=== PATIENT | male | born 2005 | race Two or more races ===

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

== ENCOUNTER 2024-07-15 18:05 | Inpatient (IN) | payer OTHER ==
[~2024-07-15] VITALS: Ht 165.1 cm; Wt 58.9 kg
[~2024-07-15 18:05] MED LIST: ZYRTEC10 M3 PO
--- NOTE | 2024-07-15 18:22 | NUR ---
SE RECIBE MASCULINO ALERTA Y ORIENTADO X3 CUAL REFIERE DOLOR DE GARGANTA DESDE EL SABADO. SE PANTERA S/V Y SE UBICA.
[2024-07-15 20:38] LABS: HEMATOCRIT 47.5 % (39.0-48.0); HEMOGLOBIN 15.4 g/dL (13-16.00); MEAN CELL VOLUME 82.4 fL (80.0-100.00); MEAN CORPUSCULAR HEMOGLOBIN 26.8 pg (27.00-32.0); MEAN CORPUSCULAR HGB CONC 32.5 g/dl (32.0-36.0); RED BLOOD COUNT 5.77 M/uL (4.00-6.00); RED CELL DISTRIBUTION WIDTH 14.2 % (11.5-14.5)
[2024-07-15 20:40] LABS: PLATELET COUNT 98 K/uL (150-450)
--- NOTE | 2024-07-15 20:49 | NUR ---
PTE ALERTA Y ORIENTADO X3, SE EDUCA SOBRE TX MEDICO Y EL MISMO REFIERE ACEPTAR. SE CANALIZA Y SE COLECTAN MUESTRAS DE LAB BAJO MEDIDAS ASEPTICAS. PEND XRAY A REALIZAR
[2024-07-15] MEDS ORDERED: DEXTROSE 5 % AND 0.9 % NACL 1,000 ML IV SCH (21:45)
[2024-07-15] MEDS ORDERED: ACETAMINOPHEN 500 MG GEL..CAP PO PRN (22:00)
[2024-07-15 22:50] VITALS: BP 109/57; O2SAT 98
[2024-07-15 22:51] VITALS: BP 109/57
[2024-07-16 00:18] VITALS: BP 109/63; O2SAT 99
[2024-07-16 02:27] VITALS: BP 112/76; O2SAT 98
[2024-07-16 04:00] VITALS: BP 128/96; O2SAT 97
[2024-07-16 06:22] LABS: HEMATOCRIT 43.5 % (39.0-48.0); MEAN CELL VOLUME 79.9 fL (80.0-100.00); MEAN CORPUSCULAR HEMOGLOBIN 27.6 pg (27.00-32.0); MEAN CORPUSCULAR HGB CONC 34.5 g/dl (32.0-36.0); RED BLOOD COUNT 5.45 M/uL (4.00-6.00); RED CELL DISTRIBUTION WIDTH 14.4 % (11.5-14.5)
[2024-07-16 06:24] LABS: PLATELET COUNT 94 K/uL (150-450)
[2024-07-16 06:45] LABS: ALBUMIN 3.9 gm/dL (3.4-5.0); BILIRUBIN TOTAL 0.61 mg/dL (0.3-1.2); CALCIUM 8.8 mg/dL (8.5-10.1); CREATININE SERUM 0.78 mg/dL (0.70-1.30); GFR 126.9; GLOBULINA 2.9 G/DL (2.4-3.5); POTASSIUM 4.26 mEq/L (3.5-5.1); TOTAL PROTEIN 6.8 gm/dL (6.4-8.2)
[2024-07-16 08:25] VITALS: BP 111/74; O2SAT 97
[2024-07-16 16:29] VITALS: BP 116/75; O2SAT 97
[2024-07-17 00:22] VITALS: BP 95/63; O2SAT 97
[2024-07-17 06:53] LABS: ALBUMIN 3.8 gm/dL (3.4-5.0); BILIRUBIN TOTAL 0.42 mg/dL (0.3-1.2); CALCIUM 8.8 mg/dL (8.5-10.1); CREATININE SERUM 0.76 mg/dL (0.70-1.30); GFR 130.76; GLOBULINA 2.8 G/DL (2.4-3.5); POTASSIUM 4.15 mEq/L (3.5-5.1); TOTAL PROTEIN 6.6 gm/dL (6.4-8.2)
[2024-07-17 07:05] LABS: HEMATOCRIT 42.2 % (39.0-48.0); HEMOGLOBIN 13.8 g/dL (13-16.00); MEAN CELL VOLUME 81.9 fL (80.0-100.00); MEAN CORPUSCULAR HEMOGLOBIN 26.7 pg (27.00-32.0); MEAN CORPUSCULAR HGB CONC 32.6 g/dl (32.0-36.0); RED BLOOD COUNT 5.15 M/uL (4.00-6.00); RED CELL DISTRIBUTION WIDTH 14.1 % (11.5-14.5)
[2024-07-17 07:21] LABS: PLATELET COUNT 86 K/uL (150-450)
[2024-07-17 08:10] VITALS: BP 107/70; O2SAT 98
[2024-07-17 11:29] LABS: HEMATOCRIT 43.6 % (39.0-48.0); MEAN CORPUSCULAR HEMOGLOBIN 26.3 pg (27.00-32.0); MEAN CORPUSCULAR HGB CONC 32.1 g/dl (32.0-36.0); RED BLOOD COUNT 5.31 M/uL (4.00-6.00); RED CELL DISTRIBUTION WIDTH 14.2 % (11.5-14.5)
[2024-07-17 11:32] LABS: PLATELET COUNT 86 K/uL (150-450)
[2024-07-17 12:23] LABS: INR 1.15; PARTIAL THROMBOPLASTIN TIME 30.1 SECONDS (22.0-34.0); PROTHROMBIN TIME 12.4 SECONDS (9.0-11.5)
[2024-07-17 12:26] LABS: MANUAL PLATELET COUNT 176
[2024-07-17] MEDS ORDERED: METHYLPREDNISOLONE SOD SUCC 40 MG VIAL IV SCH (13:00)
[2024-07-17 16:00] VITALS: BP 102/67; O2SAT 98
[2024-07-18 00:01] VITALS: BP 126/77; O2SAT 96
[2024-07-18 08:22] VITALS: BP 107/57; O2SAT 97
[2024-07-18] MEDS ORDERED: CETIRIZINE HCL 5 MG/5 ML ML PO SCH (17:00)
[2024-07-18] MEDS ORDERED: FLUTICASONE PROPIONATE 50 MCG SPRAY NASAL SCH (17:00)
[2024-07-18 18:39] VITALS: BP 110/73; O2SAT 98
[2024-07-18 20:53] VITALS: BP 108/69; O2SAT 98
[2024-07-19] VITALS: BP 100/64; O2SAT 97
[2024-07-19 06:12] LABS: HEMATOCRIT 41.8 % (39.0-48.0); HEMOGLOBIN 13.5 g/dL (13-16.00); MEAN CELL VOLUME 82.1 fL (80.0-100.00); MEAN CORPUSCULAR HEMOGLOBIN 26.6 pg (27.00-32.0); MEAN CORPUSCULAR HGB CONC 32.4 g/dl (32.0-36.0); RED BLOOD COUNT 5.09 M/uL (4.00-6.00); RED CELL DISTRIBUTION WIDTH 14.2 % (11.5-14.5)
[2024-07-19 06:55] LABS: PLATELET COUNT 103 K/uL (150-450)
[2024-07-19 08:15] VITALS: BP 116/79; O2SAT 98
== END 2024-07-19 12:31 | disposition home or self-care (01) | DRG 866 ==
LOC: EMR PED 18:07 → ER 18:07 → EMR PED 20:01 → SEC-K 21:35 → PED 07-16 00:54
PROVIDERS: General Practice; Pediatrics; ADMIT Emergency Medicine; ATTEND Emergency Medicine
DX: A90 Dengue fever [classical dengue] (principal); D82.1 Di George's syndrome; D69.6 Thrombocytopenia, unspecified

== ENCOUNTER 2025-06-08 16:46 | Emergency (ER) | payer OTHER ==
[~2025-06-08] VITALS: Ht 170.2 cm; Wt 62.6 kg
[2025-06-08] MEDS ORDERED: RISPERDAL0.5 MG PO (17:55)
[2025-06-08] MEDS ORDERED: SERTRALINE20 MG/1 ML (17:55)
[2025-06-08] MEDS ORDERED: BENZTROPINE ME0.5 MG PO (17:55)
[2025-06-08] MEDS ORDERED: ALLERGY RELIE15.8 ML (17:56)
[2025-06-08] MEDS ORDERED: 0.9 % SODIUM CHLORIDE 500 ML IV ONE (19:30)
[2025-06-08] MEDS ORDERED: AZITHROMYCIN 500 MG VIAL IV ONE ×2 (19:30→20:08)
[2025-06-08] MEDS ORDERED: ALBUTEROL SULFATE 3 ML/2.5 MG AMPUL.NEB IH SCH (19:30)
[2025-06-08] MEDS ORDERED: METHYLPREDNISOLONE SOD SUCC 125 MG VIAL IV ONE (19:30)
[2025-06-08] MEDS ORDERED: CETIRIZINE HCL 5 MG/5 ML ML PO ONE (19:30)
[2025-06-08] MEDS ORDERED: GUAIFENESIN 200 MG/10 ML BLIST.PACK PO ONE ×2 (19:30→20:08)
[2025-06-08] MEDS ORDERED: IPRATROPIUM BROMIDE 0.5 MG/2.5 ML AMPUL.NEB IH SCH (19:30)
[2025-06-08] MEDS ORDERED: METHYLPREDNISOLONE SOD SUCC 125 MG VIAL ONE (20:07)
[2025-06-08] MEDS ORDERED: CETIRIZINE HCL 5MG/5ML BLIST.PACK PO ONE (20:07)
[2025-06-08] MEDS ORDERED: IPRATROPIUM BROMIDE 0.5 MG/2.5 ML AMPUL.NEB IH ONE (20:14)
[2025-06-08] MEDS ORDERED: ALBUTEROL SULFATE 3 ML/2.5 MG AMPUL.NEB IH ONE (20:14)
[2025-06-08 21:28] LABS: BASO % 0.4 % (0.1-1.2); EOS # 0.23 (0.04-0.54); EOS % 3.4 % (0.7-7.0); LYMPH # 0.96 (1.18-3.74); LYMPH % 14.1 % (19.3-53.1); MONO # 0.42 (0.24-0.82); MONO % 6.1 % (4.7-12.5); NEUT # 5.17 (1.56-6.13); NEUT % 75.7 % (34.0-71.1); RED CELL DISTRIBUTION WIDTH 14.0 % (11.6-14.4)
[2025-06-08 21:35] LABS: ERYTHROCYTE SEDIMENTATION RATE 14 mm/hr (0-15)
[2025-06-08 21:48] LABS: INR 1.12
[2025-06-08 21:50] LABS: BUN CREA RATIO 11.0 (7.0-25.0); CREATININE SERUM 1.04 mg/dL (0.70-1.30); GFR 90.15; GLUCOSE FASTING 88.0 mg/dL (65-100); OSMOLALITY SERUM 274.0 MOSM/KG (275-295)
[2025-06-08 22:42] LABS: COVID-19 AG NEGATIVE (NEGATIVE)
[2025-06-09] MEDS ORDERED: POTASSIUM BICARBONATE/CIT AC 25 MEQ TABLET.EFF PO ONE (00:15)
[2025-06-09 00:45] LABS: URINE APPEARANCE Cloudy; URINE BILIRRUBIN Negative (NEGATIVE); URINE BLOOD Negative; URINE COLOR Yellow; URINE GLUCOSE Negative (NEGATIVE); URINE KETONE 15 (NEGATIVE); URINE LEUKOCYTE Negative; URINE NITRATE Negative; URINE PROTEIN Negative (NEGATIVE); URINE UROBILINOGEN 0.2 E.U./dl
[2025-06-09 00:52] LABS: URINE BACTERIA 34.7 uL (0.0-1933); URINE EPITHELIAL CELLS 2.9 uL (0.0-38.8); URINE WBC 3.0 uL (0.0-23.2)
[2025-06-09 01:05] LABS: URINE CAST 0.58 uL (0.0-1.40); URINE RBC 0.7 uL (0.0-20.8)
[2025-06-09] MEDS ORDERED: NACL IV SCH (03:15)
[2025-06-09] MEDS ORDERED: POTASSIUM CHLORIDE IV SCH (03:15)
[2025-06-09] MEDS ORDERED: ALBUTEROL SULFATE 3 ML/2.5 MG AMPUL.NEB IH SCH (05:00)
[2025-06-09] MEDS ORDERED: POTASSIUM CHLORIDE/D5-0.9%NACL 20 MEQ/1,000 ML PIGGYBAG IV ONE (05:26)
[2025-06-09 07:45] LABS: BASO % 0.0 % (0.1-1.2); EOS # 0.01 (0.04-0.54); EOS % 0.2 % (0.7-7.0); LYMPH # 0.45 (1.18-3.74); LYMPH % 7.4 % (19.3-53.1); MEAN PLATELET VOLUME 13.40 fl (9.4-12.4); MONO # 0.05 (0.24-0.82); MONO % 0.8 % (4.7-12.5); NEUT # 5.56 (1.56-6.13); NEUT % 91.4 % (34.0-71.1); RED CELL DISTRIBUTION WIDTH 14.2 % (11.6-14.4)
[2025-06-09 08:24] LABS: BUN CREA RATIO 14.0 (7.0-25.0); CREATININE SERUM 0.9 mg/dL (0.70-1.30); GFR 106.52; GLUCOSE FASTING 155.0 mg/dL (65-100); OSMOLALITY SERUM 279.0 MOSM/KG (275-295)
[2025-06-09] MEDS ORDERED: ALBUTEROL SULFATE 3 ML/2.5 MG AMPUL.NEB IH ONE (08:29)
== END 2025-06-09 14:35 | disposition home or self-care (01) ==
LOC: ER 16:47
DX: E87.6 Hypokalemia (principal); J06.9 Acute upper respiratory infection, unspecified; D82.1 Di George's syndrome; J45.909 Unspecified asthma, uncomplicated; Z20.822 Contact with and (suspected) exposure to COVID-19